=== PATIENT | female | born 1970 | race Hispanic/Latino ===

== ENCOUNTER 2020-07-11 06:12 | Emergency (ER) | payer OTHER ==
[~2020-07-11] VITALS: Ht 157.5 cm; Wt 91.6 kg
[2020-07-11] MEDS ORDERED: EYE DROPS15 M1 (07:00)
[2020-07-11] MEDS ORDERED: LEVOTHYROXINE75 MCG PO (07:00)
[2020-07-11] MEDS ORDERED: NORVASC5 MG PO (08:28)
[2020-07-11] MEDS ORDERED: HYDRALAZINE HCL 20 MG/ML VIAL ONE (08:28)
[2020-07-11] MEDS ORDERED: ASPIRIN 325 MG TAB PO ONE (08:30)
[2020-07-11 08:40] VITALS: BP 180/81
[2020-07-11] MEDS ORDERED: ASPIRIN 325 MG TAB ONE (08:55)
[2020-07-11] MEDS ORDERED: HYDRALAZINE HCL 20 MG/ML VIAL IV STA (08:58)
== END 2020-07-11 08:55 | disposition home or self-care (01) ==
LOC: FSED 06:30
DX: R07.89 Other chest pain (principal); I16.9 Hypertensive crisis, unspecified; R20.2 Paresthesia of skin; E03.9 Hypothyroidism, unspecified
CPT/HCPCS: 70450; 80053; 82553; 84484; 85025; 93005; 96374; 99284; J0360